=== PATIENT | female | born 1945 | race Caucasian/White ===

== ENCOUNTER → 2017-05-19 | Outpatient (CLI) | payer OTHER ==
[2017-05-19 13:59] LABS: BLOOD GAS BASE EXCESS 2.4 mmol/L (-2-2); BLOOD GAS CARBOXYHEMOGLOBIN 6.5 % (0-4); BLOOD GAS HCO3 27 mmol/L (22-26); BLOOD GAS METHEMOGLOBIN 1.2 % (0-2); BLOOD GAS O2 HGB SATURATION 87 % (90-100); BLOOD GAS OXYGEN CONTENT 18.9 Vol % (12.0-20.0); BLOOD GAS PCO2 43 mmHg (38-42); BLOOD GAS PO2 68 mmHg (61-120); BLOOD GAS TOTAL HGB 15.5 G/DL (12.0-16.0); CRITICAL VALUE NO; TEMP CORR TO 98.6
[2017-05-19 14:00] LABS: DRAW SITE RT RADIAL; FIO2 21 %; NUMBER OF ARTERIAL PUNCTURES 1; STAT NO; ULNAR PULSE PRESENT
--- NOTE | 2017-05-24 10:01 | RSPPFT ---
DATE OF PROCEDURE: 05/19/17 COMMENTS: VOLUMES DYNAMIC: FVC and FEV1 mildly reduced. STATIC: FRC and RV mildly increased; TLC normal. FLOWS: FEV1% normal; FEF 25-75 moderately reduced. DIFFUSION: Moderately reduced. FLOW VOLUME LOOP: Pattern of variable intrathoracic airways obstruction. IMPRESSION: Mild to moderate obstructive ventilator defect with mild hyperinflation and a moderate reduction in diffusion. No significant improvement noted post-bronchodilator.
== END ==
LOC: HRSP 12:58
PROVIDERS: ATTEND Internal Medicine
DX: J44.9 Chronic obstructive pulmonary disease, unspecified (principal)
CPT/HCPCS: 36600; 82805; 94060; 94620; 94726; 94729